=== PATIENT | male | born 1970 | race Caucasian/White ===

== ENCOUNTER 2017-11-13 10:49 | Emergency (ER) | payer BC ==
[2017-11-13 14:18] VITALS: BP 143/83
[2017-11-13] MEDS ORDERED: Acetaminophen TAB* 325 MG PO ONE (14:22)
--- NOTE | 2017-11-13 14:35 | UC ---
Respiratory Complaint HPI - HPI Summary HPI Summary: pt presents with c/o fever, chills, cough, chest congestion X 3 days. Pt does not get flu vaccine. - History of Current Complaint Chief Complaint: UCRespiratory Stated Complaint: FEVER UPPER RESPIRATORY ACHY Time Seen by Provider: 11/13/17 14:08 Hx Obtained From: Patient Onset/Duration: Sudden Onset, Lasting Days, Still Present Timing: Constant Severity Initially: Mild Severity Currently: Mild Pain Intensity: 5 Character: Cough: Nonproductive Aggravating Factors: Deep Breaths, Recumbent Position Alleviating Factors: Nothing Associated Signs And Symptoms: Positive: Fever, Chills, URI, Nasal Congestion - Risk Factors Pulmonary Embolism Risk Factors: Negative Cardiac Risk Factors: Negative Pseudomonas Risk Factors: Negative Tuberculosis Risk Factors: Negative - Allergies/Home Medications Allergies/Adverse Reactions: Allergies Allergy/AdvReac Type Severity Reaction Status Date / Time No Known Allergies Allergy Verified 04/24/15 08:57 Home Medications: Home Medications Acetaminophen [Acetaminophen Extra Strength] 500 mg PO PRN 11/13/17 [History] Guaifen/Dextromethorphan/PE [Robitussin Cough-Cold Cf Liq] 20 ml PO PRN [History] PMH/Surg Hx/FS Hx/Imm Hx Previously Healthy: Yes - Surgical History Surgical History: Yes Surgery Procedure, Year, and Place: thyroid, appy, right knee - Family History Known Family History: Positive: Cardiac Disease - Social History Occupation: Employed Full-time Lives: With Family Alcohol Use: Occasionally Substance Use Type: None Smoking Status (MU): Never Smoked Tobacco Have You Smoked in the Last Year: No - Immunization History Vaccination Up to Date: No Review of Systems Constitutional: Fever, Chills, Fatigue Skin: Negative Eyes: Negative ENT: Ear Ache, Sinus Congestion Respiratory: Cough Cardiovascular: Negative Gastrointestinal: Negative Genitourinary: Negative Motor: Negative Neurovascular: Negative Musculoskeletal: Myalgia Neurological: Negative Psychological: Negative Is Patient Immunocompromised?: No All Other Systems Reviewed And Are Negative: Yes Physical Exam Triage Information Reviewed: Yes Appearance: Ill-Appearing Vital Signs: Initial Vital Signs Temp 101 F 11/13/17 14:13 Pulse 87 11/13/17 14:13 Resp 16 11/13/17 14:13 BP 143/83 11/13/17 14:13 Pulse Ox 100 02/05/18 14:13 Vital Signs Reviewed: Yes Eye Exam: Normal ENT Exam: Other ENT: Positive: Nasal congestion, TM bulging, Sinus tenderness Dental Exam: Normal Neck exam: Normal Neck: Positive: Nontender Respiratory Exam: Normal Cardiovascular Exam: Normal Musculoskeletal Exam: Normal Neurological Exam: Normal Psychological Exam: Normal Skin Exam: Normal UC Diagnostic Evaluation - Laboratory O2 Sat by Pulse Oximetry: 100 Diagnostic Studies Comment: Rapid flu positive for B Respiratory Course/Dx - Differential Dx/Diagnosis Differential Diagnosis/HQI/PQRI: Bronchitis, Influenza Provider Diagnoses: Influenza B. Bronchitis Discharge - Discharge Plan Condition: Stable Disposition: HOME Prescriptions: Albuterol HFA INHALER* [Ventolin HFA Inhaler*] 1 - 2 puff INH Q6H PRN #1 mdi PRN Reason: Wheezing Azithromycin TAB* [Zithromax TAB (Z-PHILLY) 250 mg #6 tabs] 2 tab PO .TODAY, THEN 1 DAILY #1 [place] Benzonatate CAP* [Tessalon 100 MG CAP*] 100 mg PO Q8H PRN #30 cap PRN Reason: Cough Oseltamivir CAP* [Tamiflu CAP*] 75 mg PO Q12H #10 cap Patient Education Materials: Influenza (ED), Acute Bronchitis (ED) Forms: *Work Release Referrals: Abner Caraballo MD [Primary Care Provider] - If Needed
== END 2017-11-13 14:54 | disposition home or self-care (01) ==
LOC: UCCORT 10:49
DX: J10.1 Influenza due to other identified influenza virus with other respiratory manifestations (principal); J40 Bronchitis, not specified as acute or chronic; Z72.89 Other problems related to lifestyle
CPT/HCPCS: 87502; 99212; A9270-GY; G0463